=== PATIENT | male | born 1960 | race Caucasian/White ===

== ENCOUNTER 2019-04-13 11:15 | Emergency (ER) | payer MEDICAID, OTHER ==
[~2019-04-13] VITALS: Ht 167.6 cm; Wt 76.9 kg
[~2019-04-13 11:15] MED LIST: AMIT150T PO; ASPI-611 PO; LORA1TAB PO; OMEP20TA23 PO; QUET25TA PO; ZOLP12.531 PO
[2019-04-13 11:43] VITALS: BP 142/97
[2019-04-13 12:11] LABS: HEMOGLOBIN 17.5 g/dl (14.0-17.9); LYMPHOCYTES # (AUTO) 0.4 X10'3 (1.1-4.8); MONOCYTES # (AUTO) 0.6 X10'3 (0-0.9)
[2019-04-13 12:13] LABS: BASOPHILS % (AUTO) 0.4 % (0-1); EOSINOPHILS # (AUTO) 0.3 X10'3 (0-0.9); EOSINOPHILS % (AUTO) 4.4 % (0-6); HEMATOCRIT 49.8 % (42.0-52.0); LYMPHOCYTES % (AUTO) 6.5 % (21-51); MEAN CORPUSCULAR HEMOGLOBIN 33.3 PG (27.0-31.0); MEAN CORPUSCULAR HGB CONC 35.2 g/dL (33.0-36.5); MEAN CORPUSCULAR VOLUME 94.4 FL (78-98); MEAN PLATELET VOLUME 7.2 FL (7.4-10.4); MONOCYTES % (AUTO) 9.9 % (2-12); NEUTROPHILS # (AUTO) 4.8 X10'3 (1.8-7.7); NEUTROPHILS % (AUTO) 78.8 % (42-75); PLATELET COUNT 209 X10'3 (140-440); RED BLOOD COUNT 5.28 X10'6 (4.70-6.10); RED CELL DISTRIBUTION WIDTH 12.5 % (11.5-14.5)
[2019-04-13 12:37] LABS: ALANINE AMINOTRANSFERASE 102 U/L (12-78); ALBUMIN 4.1 G/DL (3.4-5.0); ALBUMIN/GLOBULIN RATIO 1.1 (1.1-1.5); ALKALINE PHOSPHATASE 96 IU/L (46-116); ANION GAP 6 (8-16); ASPARTATE AMINO TRANSFERASE 51 U/L (10-37); BILIRUBIN,TOTAL 0.5 MG/DL (0.1-1.0); BLOOD UREA NITROGEN 17 MG/DL (7-18); BUN/CREATININE RATIO 11.5 (5.4-32.0); CALCIUM 8.8 MG/DL (8.5-10.1); CHLORIDE 104 MMOL/L (99-107); CREATININE 1.48 MG/DL (0.60-1.10); GLUCOSE 93 MG/DL (70-104); POTASSIUM 4.4 MMOL/L (3.5-5.1); SODIUM 141 MMOL/L (135-145); TOTAL PROTEIN 7.8 G/DL (6.4-8.2); eGFR 49 ML/MIN
[2019-04-13] MEDS ORDERED: ipratropium/albuterol 3ml nebule NEB ONE (12:55)
[2019-04-13] MEDS ORDERED: predniSONE 20 mg tablet PO ONE (12:55)
[2019-04-13] MEDS ORDERED: AZIT250T83 PO (13:40)
[2019-04-13] MEDS ORDERED: PRED20TA PO (13:40)
== END 2019-04-13 13:50 | disposition home or self-care (01) ==
LOC: ER 11:15
DX: J40 Bronchitis, not specified as acute or chronic (principal); Z87.891 Personal history of nicotine dependence; Z98.890 Other specified postprocedural states; Z79.82 Long term (current) use of aspirin; Z79.899 Other long term (current) drug therapy
CPT/HCPCS: 36415; 71045; 80053; 83880; 84484; 85025; 93005; 94640; 99284; J7512; 94760